=== PATIENT | female | born 1930 | race Caucasian/White ===

== ENCOUNTER → 2016-09-24 | Outpatient (CLI) | payer MEDICARE, BC ==
[~2016-09-24] MED LIST: ALBUAER3 INH; ASCO500T PO; ASPI-119 PO; BECL80AE3 INH; MELA10CA PO; MIRA50TA PO; MULTCAP2; ONETAB22 PO; TRAZ50TA12 PO; VAGI10TA VAGINAL; VESI5TAB PO; VITA500T PO
--- NOTE | 2016-09-25 10:09 | RSPPFT ---
DATE OF PROCEDURE: 09/24/16 COMMENTS: VOLUMES DYNAMIC: FVC and FEV1 moderately reduced. STATIC: RV mildly increased; FRC and TLC normal. FLOWS: FEV1% mildly reduced; FEF 25-75 severely reduced. DIFFUSION: Normal. 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 No significant increase in airways resistance is noted. Diffusion capacity is normal. There is no significant improvement post-bronchodilator.
== END ==
LOC: HRSP 10:26
PROVIDERS: ATTEND Internal Medicine
DX: R06.02 Shortness of breath (principal)
CPT/HCPCS: 94060; 94620; 94726; 94729

== ENCOUNTER → 2017-10-05 | Outpatient (CLI) | payer MEDICARE, BC ==
[~2017-10-05] MED LIST changes: -MULTCAP2; -VESI5TAB PO; -VITA500T PO
--- NOTE | 2017-10-08 08:58 | RSPPFT ---
DATE OF PROCEDURE: 10/05/17 COMMENTS: VOLUMES DYNAMIC: FVC and FEV1 moderately reduced. STATIC: FRC, RV and TLC mildly reduced. FLOWS: FEV1% normal; FEF 25-75 moderately reduced. DIFFUSION: Severely reduced. FLOW VOLUME LOOP: Combined restrictive configuration with terminal airflow obstruction. IMPRESSION: Mild restrictive and mild obstructive ventilatory defect with a severe reduction in diffusion. Minimal change noted post-bronchodilator.
== END ==
LOC: HRSP 09:12
PROVIDERS: ATTEND Internal Medicine
DX: J44.9 Chronic obstructive pulmonary disease, unspecified (principal); R06.02 Shortness of breath
CPT/HCPCS: 94060; 94618; 94726; 94729